=== PATIENT | male | born 1990 | race Caucasian/White ===

== ENCOUNTER 2020-10-27 21:31 | Emergency (ER) | payer OTHER ==
[2020-10-27 21:51] VITALS: TEMP 98.5; BMI 28.5
[2020-10-27] MEDS ORDERED: amLODIPine BESYLATE 10 MG TABLET (FP) PO ONE (22:20)
[2020-10-27] MEDS ORDERED: amLODIPine BESYLATE 5 MG TABLET (FP) ONE (22:22)
[2020-10-27 22:37] LABS: BASO % 1.2 % (0-2.0); EOS % 0.8 % (0-4.5); HEMATOCRIT 43.4 % (35.4-49); HEMOGLOBIN 14.6 GM/dL (11.7-16.9); LYMPH % 29.6 % (8-40); MCH 28.9 pg (25.7-33.7); MCHC 33.6 g/dl (32.0-35.9); MEAN PLT VOLUME 7.3 fl (7.5-11.1); MONO % 7.2 % (3.8-10.2); NEUT % 61.2 % (42.8-82.8); PLATELET COUNT 270 10^3/uL (134-434); RBC 5.05 M/mm3 (4.00-5.60); RDW 14.1 % (11.9-15.9)
[2020-10-27 22:55] LABS: CHLORIDE 106 mmol/L (98-107); SODIUM 141 mmol/L (136-145)
[2020-10-27 22:57] LABS: ALBUMIN 4.3 g/dl (3.4-5.0); ANION GAP 7 MMOL/L (8-16); BLOOD UREA NITROGEN 18.6 mg/dL (7-18); CALCIUM 8.6 mg/dL (8.5-10.1); CO2 28 mmol/L (21-32)
[2020-10-27 22:58] LABS: GLUCOSE,RANDOM 94 mg/dL (74-106)
[2020-10-27 23:00] LABS: CREATININE 1.1 mg/dL (0.55-1.3); SGOT/AST 22 U/L (15-37); SGPT/ALT 33 U/L (13-61)
[2020-10-27 23:02] LABS: BILIRUBIN,TOTAL 0.3 mg/dL (0.2-1); TOT PROT 7.3 g/dl (6.4-8.2)
[2020-10-27 23:03] LABS: ALK PHOS 83 U/L (45-117)
[2020-10-28 00:15] VITALS: BP 165/107; PULSE 79
== END 2020-10-28 00:41 | disposition home or self-care (01) ==
LOC: JER 21:31
DX: I10 Essential (primary) hypertension (principal)
CPT/HCPCS: 36415; 71045-TC-FY; 80053; 84484; 85025; 93005; 93010; 99284-25

== ENCOUNTER 2022-02-14 16:03 | Emergency (ER) | payer OTHER ==
[2022-02-14 16:27] VITALS: PULSE 87; RESP 18; TEMP 98.6; BMI 30.7
[2022-02-14] MEDS ORDERED: amLODIPine BESYLATE 10 MG TABLET (FP) PO ONE (16:41)
[2022-02-14] MEDS ORDERED: amLODIPine BESYLATE 5 MG TABLET (FP) ONE (16:45)
[2022-02-14 17:22] VITALS: BP 192/118
== END 2022-02-14 18:17 | disposition home or self-care (01) ==
LOC: FER 16:03
DX: I10 Essential (primary) hypertension (principal)
CPT/HCPCS: 99283-25

== ENCOUNTER 2023-11-22 10:04 | Emergency (ER) | payer OTHER ==
[2023-11-22 10:11] VITALS: BP 173/107; PULSE 92; RESP 18; TEMP 99.2; BMI 27.8
[2023-11-22] MEDS ORDERED: LISINOPRIL 20 MG TABLET ONE ×2 (10:46→10:54)
[2023-11-22] MEDS ORDERED: ACETAMINOPHEN 325 MG TABLET (FP) ONE ×2 (10:49→13:43)
[2023-11-22] MEDS: LISINOPRIL 20 MG TABLET PO ONE ×2 (10:56)
[2023-11-22] MEDS: ACETAMINOPHEN 500 MG TABLET (FP) PO ONE ×2 (10:56→13:46)
[2023-11-22] MEDS ORDERED: IBUPROFEN 600 MG TABLET (FP) PO ONE (13:43)
[2023-11-22] MEDS: IBUPROFEN 600 MG TABLET (FP) PO ONE (13:46)
== END 2023-11-22 13:46 | disposition home or self-care (01) ==
LOC: JER 10:04
DX: M71.21 Synovial cyst of popliteal space [Baker], right knee (principal); M25.561 Pain in right knee; M25.461 Effusion, right knee; X50.1XXA Overexertion from prolonged static or awkward postures, initial encounter; Y93.67 Activity, basketball
CPT/HCPCS: 73562-TC-RT-FY; 93971-TC; 99284-25